=== PATIENT | male | born 1950 | race Caucasian/White ===

== ENCOUNTER → 2016-11-06 | Outpatient (CLI) | payer MEDICARE, OTHER | LOC: RAD 10:40 | PROVIDERS: ATTEND Physician Assistant | DX: M54.2 Cervicalgia (principal); M48.02 Spinal stenosis, cervical region | CPT/HCPCS: 72141 ==

== ENCOUNTER 2017-01-25 19:44 | Emergency (ER) | payer MEDICARE, OTHER ==
[2017-01-25] MEDS ORDERED: NORMAL SALINE 1000 ML 1,000 ML IV ONE (20:12)
[2017-01-25 20:35] LABS: ABSOLUTE BASOPHILS # (AUTO) 0.1 10^3/uL (0.0-0.2); ABSOLUTE EOSINOPHILS # (AUTO) 0.2 10^3/uL (0.0-0.6); ABSOLUTE LYMPHOCYTES (AUTO) 2.3 10^3/uL (0.5-4.7); ABSOLUTE MONOCYTES (AUTO) 1.2 10^3/uL (0.1-1.4); ABSOLUTE NEUT (AUTO) 3.8 10^3/uL (1.7-8.2); EOSINOPHILS % (AUTO) 3.2 % (0-6); HEMOGLOBIN 12.7 g/dL (13.5-17.0); HGB HCT DIFFERENCE 0.1; LYMPHOCYTES % (AUTO) 30.3 % (13-45); MEAN CORPUSCULAR HGB CONC 33.4 g/dL (32.0-36.0); MEAN CORPUSCULAR VOLUME 90 fl (80-97); RED BLOOD COUNT 4.23 10^6/uL (4.35-5.55); RED CELL DISTRIBUTION WIDTH 13.9 % (11.5-14.0); SEGMENTED NEUTROPHILS % (AUTO) 49.5 % (42-78); WHITE BLOOD COUNT 7.6 10^3/uL (4.0-10.5)
[2017-01-25 20:56] LABS: ALANINE AMINOTRANSFERASE 40 U/L (21-72); ALBUMIN 3.8 g/dL (3.5-5.0); ALKALINE PHOSPHATASE 66 U/L (38-126); ANION GAP 12 (5-19); ASPARTATE AMINO TRANSFERASE 29 U/L (17-59); BILIRUBIN,DIRECT 0.1 mg/dL (0.0-0.4); BILIRUBIN,TOTAL 0.2 mg/dL (0.2-1.3); BLOOD UREA NITROGEN 12 mg/dL (7-20); CALCIUM 9.1 mg/dL (8.4-10.2); CARBON DIOXIDE 25 mmol/L (22-30); CHLORIDE 109 mmol/L (98-107); CREATINE KINASE 159 U/L (55-170); CREATININE RESULT 0.83 mg/dL (0.52-1.25); GLUCOSE 109 mg/dL (75-110); POTASSIUM 4.5 mmol/L (3.6-5.0); SODIUM 145.8 mmol/L (137-145); TOTAL PROTEIN 6.6 g/dL (6.3-8.2)
[2017-01-25] MEDS ORDERED: MECLIZINE HCL 25 MG TABLET PO ONE (21:02)
[2017-01-25 21:06] LABS: CREATINE KINASE MB 2.65 ng/mL (<4.55)
[2017-01-25 21:10] LABS: TROPONIN I < 0.012 ng/mL
[2017-01-25 21:12] LABS: FREE T3 4.64 pg/mL (2.77-5.27)
[2017-01-25 21:26] LABS: THYROID STIMULATING HORMONE 2.24 uIU/mL (0.47-4.68)
[2017-01-25] MEDS ORDERED: NORMAL SALINE 1000 ML 1,000 ML IV PRN (21:42)
[2017-01-25 21:48] LABS: APPEARANCE,URINE CLEAR; BILIRUBIN,URINE NEGATIVE (NEGATIVE); GLUCOSE, URINE NEGATIVE (NEGATIVE); KETONES,URINE NEGATIVE (NEGATIVE); LEUKOCYTE ESTERASE,URINE TRACE (NEGATIVE); NITRITE,URINE NEGATIVE (NEGATIVE); PROTEIN,URINE NEGATIVE (NEGATIVE); URINE SPECIFIC GRAVITY 1.014; UROBILINOGEN,URINE NEGATIVE mg/dL (<2.0)
--- NOTE | 2017-01-25 21:51 | ER Document Report ---
ED Dizziness/Weakness - General Chief Complaint: Near Syncope Stated Complaint: DIZZINESS Time seen by provider: 21:51 Mode of Arrival: Ambulatory Information source: Patient TRAVEL OUTSIDE OF THE [place] IN LAST 30 DAYS: No - HPI Patient complains to provider of: Dizziness Onset: This afternoon Onset/Duration: Sudden Quality of pain: No pain Associated symptoms: Lightheaded Exacerbated by: Change in position Baseline gait: Walks w/o assistance Notes: Patient is a 66-year-old male who presents to the emergency room complaining of dizziness/lightheadedness that started earlier today, states he "feels weird all through my system", states he is generally pretty active person, today he was feeling lightheaded, mainly when he bent over and stood up, in fact not 2 times throughout the day he fell because of his lightheadedness, he denies any injury or pain from his falls though he reports that he's been having some muscle cramps over the past few days, patient denies a history of similar symptoms previously, denies a headache, no vision changes, no chest pain or shortness of breath, no nausea or vomiting, patient's sister at bedside reports that both she and her mother suffer from vertigo - Related Data Allergies/Adverse Reactions: No Known Allergies Allergy (Unverified 04/19/11 07:06) Past Medical History - General Information source: Patient - Social History Smoking Status: Former Smoker Chew tobacco use (# tins/day): No Frequency of alcohol use: None Drug Abuse: None Family History: Reviewed & Not Pertinent Patient has suicidal ideation: No Patient has homicidal ideation: No - Past Medical History Cardiac Medical History: Reports: Hx Coronary Artery Disease, Hx Heart Attack, Hx Hypertension Pulmonary Medical History: Reports: Hx Pneumonia Denies: Hx Asthma, Hx Bronchitis, Hx COPD Neurological Medical History: Denies: Hx Cerebrovascular Accident, Hx Seizures Renal/ Medical History: Denies: Hx Peritoneal Dialysis Musculoskeltal Medical History: Reports Hx Arthritis Past Surgical History: Reports: Hx Cardiac Surgery - double bypass. Denies: Hx Pacemaker - Immunizations Hx Diphtheria, Pertussis, Tetanus Vaccination: Yes Hx Pneumococcal Vaccination: 08/24/11 Review of Systems - Review of Systems Constitutional: No symptoms reported EENT: No symptoms reported Cardiovascular: See HPI Respiratory: No symptoms reported Gastrointestinal: No symptoms reported Genitourinary: No symptoms reported Male Genitourinary: No symptoms reported Musculoskeletal: No symptoms reported Skin: No symptoms reported Hematologic/Lymphatic: No symptoms reported Neurological/Psychological: No symptoms reported -: Yes All other systems reviewed and negative Physical Exam - Vital signs Vitals: Pulse Ox 97 01/25/17 20:03 Interpretation: Normal - General General appearance: Appears well, Alert - HEENT Head: Normocephalic, Atraumatic Eyes: Normal Pupils: PERRL - Respiratory Respiratory status: No respiratory distress Chest status: Nontender Breath sounds: Normal Chest palpation: Normal - Cardiovascular Rhythm: Regular Heart sounds: Normal auscultation Murmur: No - Abdominal Inspection: Normal Distension: No distension Bowel sounds: Normal Tenderness: Nontender Organomegaly: No organomegaly - Back Back: Normal, Nontender - Extremities General upper extremity: Normal inspection, Nontender, Normal color, Normal ROM , Normal temperature General lower extremity: Normal inspection, Nontender, Normal color, Normal ROM , Normal temperature, Normal weight bearing. No: Daniel's sign - Neurological Neuro grossly intact: Yes Cognition: Normal Orientation: AAOx4 Seltzer Coma Scale Eye Opening: Spontaneous Lisa Coma Scale Verbal: Oriented Seltzer Coma Scale Motor: Obeys Commands Lisa Coma Scale Total: 15 Speech: Normal Motor strength normal: LUE, RUE, LLE, RLE Sensory: Normal - Psychological Associated symptoms: Normal affect, Normal mood - Skin Skin Temperature: Warm Skin Moisture: Dry Skin Color: Normal Course - Re-evaluation Re-evalutation: 01/25/17 21:56 Patient reports feeling much better, he is able to ambulate and bend over without any additional symptoms, lab and imaging findings were discussed with patient and family members at bedside which are unremarkable, symptoms are consistent with vertigo, patient will be discharged with a prescription for meclizine and information for follow-up, patient actually has an appointment with his primary care provider tomorrow, he was advised to keep this appointment , or return if symptoms worsen, patient acknowledges understanding and agreement with this plan - Vital Signs Vital signs: Temp Pulse Resp BP Pulse Ox 97.5 F 75 20 133/61 H 99 01/25/17 20:29 01/25/17 20:29 01/25/17 22:02 01/25/17 22:02 01/25/17 22:02 - Laboratory Result Diagrams: 01/25/17 20:17 01/25/17 20:17 Laboratory results interpreted by me: 01/25/17 01/25/17 01/25/17 20:17 20:17 21:34 RBC 4.23 L Hgb 12.7 L Monocytes % 16.0 H Sodium 145.8 H Chloride 109 H Ur Leukocyte Esterase TRACE H Urine Ascorbic Acid 40 H - Diagnostic Test Radiology reviewed: Image reviewed, Reports reviewed - EKG Interpretation by Me EKG shows normal: Sinus rhythm Rate: Normal Rhythm: NSR Discharge - Discharge Clinical Impression: Dizziness, Vertigo Condition: Stable Disposition: HOME, SELF-CARE Instructions: Dizziness ([facility]), Vertigo ([facility]) Additional Instructions: Follow up with your primary care provider in one to 2 days. Return to the emergency room immediately if symptoms worsen or any additional concerns. Prescriptions: Meclizine HCl [Antivert 25 mg Tablet] 25 mg PO TID #20 tablet Referrals: RUT MAYORGA MD [Primary Care Provider] - Follow up as needed
[2017-01-25 22:38] VITALS: BP 133/61
--- NOTE | 2017-01-26 22:08 | EKG REPORT ---
SEVERITY:- NORMAL ECG - SINUS RHYTHM : Confirmed by: Lashon Buchanan MD 26-Jan-2017 22:06:38
== END 2017-01-25 22:30 | disposition home or self-care (01) ==
LOC: ER 19:44
DX: R42 Dizziness and giddiness (principal); W19.XXXA Unspecified fall, initial encounter; Z87.891 Personal history of nicotine dependence
CPT/HCPCS: 93005; 99284; 96360; 36415; 84439; 82553; 82550; 84443; 85025; 80053; 81001; 84484; 84481; 71010; 93010; A9270; J7030

== ENCOUNTER → 2017-04-01 | Outpatient (CLI) | payer MEDICARE, OTHER ==
[2017-04-01 10:07] LABS: ABSOLUTE BASOPHILS # (AUTO) 0.1 10^3/uL (0.0-0.2); ABSOLUTE EOSINOPHILS # (AUTO) 0.2 10^3/uL (0.0-0.6); ABSOLUTE LYMPHOCYTES (AUTO) 1.8 10^3/uL (0.5-4.7); ABSOLUTE MONOCYTES (AUTO) 1.1 10^3/uL (0.1-1.4); ABSOLUTE NEUT (AUTO) 4.3 10^3/uL (1.7-8.2); EOSINOPHILS % (AUTO) 2.2 % (0-6); HEMATOCRIT 42.9 % (37.9-51.0); HEMOGLOBIN 13.9 g/dL (13.5-17.0); HGB HCT DIFFERENCE -1.2; LYMPHOCYTES % (AUTO) 24.1 % (13-45); MEAN CORPUSCULAR HEMOGLOBIN 29.5 pg (27.0-33.4); MEAN CORPUSCULAR HGB CONC 32.3 g/dL (32.0-36.0); MEAN CORPUSCULAR VOLUME 91 fl (80-97); MONOCYTES % (AUTO) 14.5 % (3-13); RED CELL DISTRIBUTION WIDTH 13.8 % (11.5-14.0); SEGMENTED NEUTROPHILS % (AUTO) 58.2 % (42-78); WHITE BLOOD COUNT 7.4 10^3/uL (4.0-10.5)
[2017-04-01 10:38] LABS: ALANINE AMINOTRANSFERASE 45 U/L (21-72); ALBUMIN 3.9 g/dL (3.5-5.0); ALKALINE PHOSPHATASE 73 U/L (38-126); ANION GAP 6 (5-19); ASPARTATE AMINO TRANSFERASE 33 U/L (17-59); BILIRUBIN,DIRECT 0.3 mg/dL (0.0-0.4); BILIRUBIN,TOTAL 0.5 mg/dL (0.2-1.3); BLOOD UREA NITROGEN 11 mg/dL (7-20); CALCIUM 9.4 mg/dL (8.4-10.2); CARBON DIOXIDE 30 mmol/L (22-30); CHLORIDE 107 mmol/L (98-107); CREATININE RESULT 0.74 mg/dL (0.52-1.25); GLUCOSE 93 mg/dL (75-110); POTASSIUM 4.5 mmol/L (3.6-5.0); SODIUM 143.1 mmol/L (137-145); TOTAL PROTEIN 7.2 g/dL (6.3-8.2)
== END ==
LOC: LAB 09:55
PROVIDERS: ATTEND Internal Medicine
DX: E03.9 Hypothyroidism, unspecified (principal); I25.10 Atherosclerotic heart disease of native coronary artery without angina pectoris; R53.82 Chronic fatigue, unspecified; G47.62 Sleep related leg cramps
CPT/HCPCS: 36415; 80053; 83735; 84443; 85025

== ENCOUNTER → 2017-04-11 | Outpatient (CLI) | payer MEDICARE, OTHER ==
--- NOTE | 2017-04-12 17:41 | XCELERA REPORT ---
[address] [address] Lower Extremity Arterial Evaluation Name: АЛЕКСАНДР SILVA Age: 67 yrs Gender: Male : 1950 Patient Status: Outpatient Patient Location: Study Date: 04/11/2017 11:07 AM Procedure: A color flow and duplex scan of the lower extremity arteries was performed bilaterally with velocity and waveform anaylsis. Ankle brachial indicies performed. Reason For Study: PVD Ordering Physician: RUT MAYORGA Performed By: Sae Orta Measurements and Calculations Right Left MAKEUP SALES CONSULTANT PSV 127.1 168.5 cm/sec Prox PFA PSV -129.2 103.1 cm/sec Prox SFA PSV -112.4 107.5 cm/sec Mid SFA PSV -83.5 -95.4 cm/sec Dist SFA PSV 337.0 -117.3 cm/sec Dist Pop A PSV 47.1 87.4 cm/sec Dist EDDA PSV 44.3 62.5 cm/sec Dist MANAGER BANQUET PSV 44.6 69.0 cm/sec Rene Pedis PSV -28.1 -50.3 cm/sec Right Side Arterial Evaluation Normal velocity and triphasic waveforms noted from the Common Femoral artery to the Femoral artery, which has a stenosis. Biphasic with well preserved waveforms, moderate spectral broadening. to the infrageniculate vessels. 20-49 % stenosis at the Femoral artery. Ankle Brachial index is 0.82. Left Side Arterial Evaluation Normal velocity and biphasic waveforms noted from the Common Femoral artery to the infrageniculate vessels. 0-19% stenosis at the Aorto Iliac inflow. Ankle Brachial index is 1.03. Interpretation Summary Moderate hemodynamically significant lesions in the right lower extremity only, on duplex imaging, at rest. No hemodynamically significant lesions in the left lower extremity only, on duplex imaging, at rest. : RUT MAYORGA > Elias Musa
== END ==
LOC: SP 10:34
PROVIDERS: ATTEND Internal Medicine
DX: I73.9 Peripheral vascular disease, unspecified (principal)
CPT/HCPCS: 93925

== ENCOUNTER 2017-11-16 08:45 | Day surgery (SDC) | payer MEDICARE, OTHER ==
[~2017-11-16 08:45] MED LIST: KETOROLAC TROMETHAMINE 0.45% 4 DROP/0.4 ML DROPERETTE OS PRN
[2017-11-16] MEDS ORDERED: CHONDR SU A NA/HYALUR INTRAOC KIT (SURGICARE) ONE (08:46)
[2017-11-16] MEDS ORDERED: LIDOCAINE 1% INJ-PF (10 MG/ML) 30 ML SDV ONE (08:46)
[2017-11-16] MEDS ORDERED: TOBRAMYCIN SULFATE/DEXAMETH OPH OINTMENT 3.5 GM ONE (08:46)
[2017-11-16] MEDS ORDERED: EPINEPHRINE INJ/PF 1 MG/1 ML AMPULE ONE (08:46)
[2017-11-16] MEDS: TETRACAINE HCL 0.5% OPH SOLN 0.6 ML DROPERETTE OS PRN ×3 (09:24→10:08)
[2017-11-16] MEDS: TROPICAMIDE 1% OPH SOLN 3 ML OS PRN ×3 (09:25→09:50)
[2017-11-16] MEDS: BESIFLOXACIN HCL 0.6% OPH SUSP 5 ML BOTTLE OS PRN ×3 (09:25→10:31)
[2017-11-16] MEDS: CYCLOPENTOLATE 0.2%/PHENYLEPHRINE 1% OPH SOLN 2 ML OS PRN ×3 (09:25→09:50)
[2017-11-16] MEDS ORDERED: MIDAZOLAM 2 MG/2 ML INJ ONE (09:48)
[2017-11-16] MEDS ORDERED: FENTANYL CITRATE INJ/PF 100 MCG/2 ML AMPUL ONE (09:48)
[2017-11-16] MEDS ORDERED: CHONDR SU A NA/HYALUR SOD 0.5 ML DISP.SYRIN ONE (10:45)
== END 2017-11-16 11:14 | disposition home or self-care (01) ==
LOC: SC 08:45
PROVIDERS: ATTEND Ophthalmology
PROC: 089330Z Drainage of Left Anterior Chamber with Drainage Device, Percutaneous Approach (ICD-10-PCS; 2017-11-16)
PROC: 08RK3JZ Replacement of Left Lens with Synthetic Substitute, Percutaneous Approach (ICD-10-PCS; principal; 2017-11-16 10:00)
DX: H25.12 Age-related nuclear cataract, left eye (principal); H40.1121 Primary open-angle glaucoma, left eye, mild stage; I10 Essential (primary) hypertension; E78.00 Pure hypercholesterolemia, unspecified; E03.9 Hypothyroidism, unspecified; M19.90 Unspecified osteoarthritis, unspecified site
CPT/HCPCS: 0191T; 66984; 142; C1783; J0171; J2250; J3010; J3490; V2630

== ENCOUNTER 2017-11-30 07:49 | Day surgery (SDC) | payer MEDICARE, OTHER ==
[~2017-11-30 07:49] MED LIST changes: +KETOROLAC TROMETHAMINE 0.45% 4 DROP/0.4 ML DROPERETTE OD PRN; -KETOROLAC TROMETHAMINE 0.45% 4 DROP/0.4 ML DROPERETTE OS PRN
[2017-11-30] MEDS ORDERED: EPINEPHRINE INJ/PF 1 MG/1 ML AMPULE ONE (07:50)
[2017-11-30] MEDS ORDERED: LIDOCAINE 1% INJ-PF (10 MG/ML) 30 ML SDV ONE (07:51)
[2017-11-30] MEDS ORDERED: TOBRAMYCIN SULFATE/DEXAMETH OPH OINTMENT 3.5 GM ONE (07:51)
[2017-11-30] MEDS ORDERED: CHONDR SU A NA/HYALUR INTRAOC KIT (SURGICARE) ONE (07:51)
[2017-11-30] MEDS: TETRACAINE HCL 0.5% OPH SOLN 0.6 ML DROPERETTE OD PRN ×3 (08:14→09:07)
[2017-11-30] MEDS: CYCLOPENTOLATE 0.2%/PHENYLEPHRINE 1% OPH SOLN 2 ML OD PRN ×3 (08:15→08:40)
[2017-11-30] MEDS: TROPICAMIDE 1% OPH SOLN 3 ML OD PRN ×3 (08:15→08:40)
[2017-11-30] MEDS: BESIFLOXACIN HCL 0.6% OPH SUSP 5 ML BOTTLE OD PRN ×3 (08:15→09:31)
[2017-11-30] MEDS ORDERED: MIDAZOLAM 2 MG/2 ML INJ ONE ×2 (08:52)
== END 2017-11-30 10:07 | disposition home or self-care (01) ==
LOC: SC 07:49
PROVIDERS: ATTEND Ophthalmology
PROC: 089230Z Drainage of Right Anterior Chamber with Drainage Device, Percutaneous Approach (ICD-10-PCS; 2017-11-30)
PROC: 08RJ3JZ Replacement of Right Lens with Synthetic Substitute, Percutaneous Approach (ICD-10-PCS; principal; 2017-11-30 09:00)
DX: H25.11 Age-related nuclear cataract, right eye (principal); H40.1111 Primary open-angle glaucoma, right eye, mild stage; Z98.42 Cataract extraction status, left eye; I10 Essential (primary) hypertension; E78.00 Pure hypercholesterolemia, unspecified; E03.9 Hypothyroidism, unspecified; M19.90 Unspecified osteoarthritis, unspecified site; Z88.5 Allergy status to narcotic agent; Z79.1 Long term (current) use of non-steroidal anti-inflammatories (NSAID); I25.2 Old myocardial infarction
CPT/HCPCS: 66984; 0191T; C1783; V2630; J2250; J3490 ×3; A9270; J0171; 142

== ENCOUNTER → 2018-02-07 | Outpatient (CLI) | payer MEDICARE, OTHER ==
[2018-02-07 09:32] LABS: ABSOLUTE BASOPHILS # (AUTO) 0.1 10^3/uL (0.0-0.2); ABSOLUTE EOSINOPHILS # (AUTO) 0.2 10^3/uL (0.0-0.6); ABSOLUTE LYMPHOCYTES (AUTO) 2.1 10^3/uL (0.5-4.7); ABSOLUTE MONOCYTES (AUTO) 1.1 10^3/uL (0.1-1.4); ABSOLUTE NEUT (AUTO) 3.3 10^3/uL (1.7-8.2); BASOPHILS % (AUTO) 0.9 % (0-2); EOSINOPHILS % (AUTO) 2.9 % (0-6); HEMATOCRIT 42.4 % (37.9-51.0); HEMOGLOBIN 14.2 g/dL (13.5-17.0); LYMPHOCYTES % (AUTO) 31.1 % (13-45); MEAN CORPUSCULAR HEMOGLOBIN 29.6 pg (27.0-33.4); MEAN CORPUSCULAR HGB CONC 33.6 g/dL (32.0-36.0); MEAN CORPUSCULAR VOLUME 88 fl (80-97); MONOCYTES % (AUTO) 16.4 % (3-13); PLATELET COUNT 220 10^3/uL (150-450); RED BLOOD COUNT 4.81 10^6/uL (4.35-5.55); RED CELL DISTRIBUTION WIDTH 14.3 % (11.5-14.0); SEGMENTED NEUTROPHILS % (AUTO) 48.7 % (42-78); TOTAL CELLS COUNTED % (AUTO) 100 %; WHITE BLOOD COUNT 6.8 10^3/uL (4.0-10.5)
[2018-02-07 10:03] LABS: ALANINE AMINOTRANSFERASE 43 U/L (21-72); ALBUMIN 4.2 g/dL (3.5-5.0); ALKALINE PHOSPHATASE 89 U/L (38-126); ANION GAP 8 (5-19); ASPARTATE AMINO TRANSFERASE 31 U/L (17-59); BILIRUBIN,DIRECT 0.1 mg/dL (0.0-0.4); BILIRUBIN,TOTAL 0.3 mg/dL (0.2-1.3); BLOOD UREA NITROGEN 19 mg/dL (7-20); CALCIUM 9.5 mg/dL (8.4-10.2); CARBON DIOXIDE 31 mmol/L (22-30); CHLORIDE 108 mmol/L (98-107); CHOLESTEROL 129.22 mg/dL (0-200); GLUCOSE 92 mg/dL (75-110); POTASSIUM 4.5 mmol/L (3.6-5.0); SODIUM 147.1 mmol/L (137-145); TOTAL PROTEIN 6.9 g/dL (6.3-8.2); TRIGLYCERIDES 69 mg/dL (<150)
[2018-02-07 10:14] LABS: DIRECT LDL 65 mg/dL (<100)
== END ==
LOC: LAB 08:58
PROVIDERS: ATTEND Internal Medicine
DX: I73.9 Peripheral vascular disease, unspecified (principal); I25.10 Atherosclerotic heart disease of native coronary artery without angina pectoris; E78.5 Hyperlipidemia, unspecified; Z68.23 Body mass index [BMI] 23.0-23.9, adult
CPT/HCPCS: 36415; 80053; 80061; 84443; 85025

== ENCOUNTER 2018-04-10 16:23 | Emergency (ER) | payer MEDICARE, OTHER ==
[2018-04-10] MEDS ORDERED: FENTANYL CITRATE INJ/PF 100 MCG/2 ML AMPUL IV ONE ×3 (18:36→23:09)
--- NOTE | 2018-04-10 18:40 | ER Document Report ---
ED Medical Screen (RME) - General Chief Complaint: Groin Pain Stated Complaint: POSSIBLE HERNIA Time Seen by Provider: 04/10/18 18:24 Notes: 68-year-old male sent in by Rut Mayroga MD for concerns of an incarcerated left inguinal hernia. Patient states that he was gardening and lifting heavy things on Tuesday, felt a steadily increasing pain in his left groin over the past several days and now complains of a very tender to palpation left hemiscrotum that is swollen. States he was seen by Rut Mayorga MD today and he was sent to the emergency department for further evaluation for possible incarcerated hernia. Patient states he has been having diarrhea, no vomiting, no fevers, admits urinary frequency. TRAVEL OUTSIDE OF THE [place] IN LAST 30 DAYS: No - Related Data Allergies/Adverse Reactions: acetaminophen [From Percocet] Allergy (Verified 11/15/17 09:35) Generalized Itching oxycodone [From Percocet] Allergy (Verified 11/15/17 09:35) Generalized Itching tramadol Allergy (Verified 11/15/17 09:35) Generalized Itching Past Medical History - General Information source: Patient - Social History Chew tobacco use (# tins/day): No Frequency of alcohol use: None Drug Abuse: None - Past Medical History Cardiac Medical History: Reports: Hx Coronary Artery Disease, Hx Heart Attack - ? Denies: Hx Hypertension Pulmonary Medical History: Reports: Hx Pneumonia Denies: Hx Asthma, Hx Bronchitis, Hx COPD Neurological Medical History: Denies: Hx Cerebrovascular Accident, Hx Seizures Renal/ Medical History: Denies: Hx Peritoneal Dialysis GI Medical History: Denies: Hx Hepatitis, Hx Hiatal Hernia, Hx Ulcer Musculoskeltal Medical History: Reports Hx Arthritis Infectious Medical History: Denies: Hx Hepatitis Past Surgical History: Reports: Hx Cardiac Surgery - double bypass, Hx Open Heart Surgery - 1998. Denies: Hx Pacemaker - Immunizations Hx Diphtheria, Pertussis, Tetanus Vaccination: Yes Review of Systems - Review of Systems Genitourinary: See HPI Male Genitourinary: See HPI Physical Exam - Vital signs Vitals: Temp Pulse Resp BP Pulse Ox 98.6 F 78 16 123/68 98 04/10/18 16:35 04/10/18 16:35 04/10/18 16:35 04/10/18 16:35 04/10/18 16:35 - Notes Notes: Appears uncomfortable, leaning back in the chair, keeping weight off of his groin is much as possible, left hemiscrotum is enlarged, erythematous, tender to palpation, there does appear to be a loop of intestine tracking into the left hemiscrotum. Right hemiscrotum is normal with a normal cremasteric reflex. Course - Re-evaluation Re-evalutation: 04/10/18 18:40 Message left with OR nurse for Dr. Bains with concerns of possible incarcerated hernia in the left hemiscrotum. - Vital Signs Vital signs: Temp Pulse Resp BP Pulse Ox 98.6 F 78 16 123/68 98 04/10/18 16:35 04/10/18 16:35 04/10/18 16:35 04/10/18 16:35 04/10/18 16:35 Doctor's Discharge - Discharge Referrals: RUT MAYORGA MD [Primary Care Provider] - Follow up as needed
[2018-04-10 19:11] LABS: ABSOLUTE BASOPHILS # (AUTO) 0.1 10^3/uL (0.0-0.2); ABSOLUTE EOSINOPHILS # (AUTO) 0.2 10^3/uL (0.0-0.6); ABSOLUTE LYMPHOCYTES (AUTO) 1.9 10^3/uL (0.5-4.7); ABSOLUTE NEUT (AUTO) 12.5 10^3/uL (1.7-8.2); BASOPHILS % (AUTO) 0.3 % (0-2); EOSINOPHILS % (AUTO) 1.2 % (0-6); HEMATOCRIT 41.4 % (37.9-51.0); HEMOGLOBIN 13.8 g/dL (13.5-17.0); LYMPHOCYTES % (AUTO) 11.5 % (13-45); MEAN CORPUSCULAR HEMOGLOBIN 30.1 pg (27.0-33.4); MEAN CORPUSCULAR HGB CONC 33.4 g/dL (32.0-36.0); MEAN CORPUSCULAR VOLUME 90 fl (80-97); MONOCYTES % (AUTO) 12.1 % (3-13); PLATELET COUNT 191 10^3/uL (150-450); RED CELL DISTRIBUTION WIDTH 14.3 % (11.5-14.0); SEGMENTED NEUTROPHILS % (AUTO) 74.9 % (42-78); TOTAL CELLS COUNTED % (AUTO) 100 %; WHITE BLOOD COUNT 16.7 10^3/uL (4.0-10.5)
[2018-04-10] MEDS ORDERED: ONDANSETRON 4 MG TAB.RAPDIS PO ONE (19:11)
[2018-04-10 19:24] LABS: BLOOD UREA NITROGEN 18 mg/dL (7-20); CALCIUM 9.7 mg/dL (8.4-10.2); GLUCOSE 99 mg/dL (75-110)
[2018-04-10 19:25] LABS: ALANINE AMINOTRANSFERASE 43 U/L (21-72); ALBUMIN 3.9 g/dL (3.5-5.0); ALKALINE PHOSPHATASE 97 U/L (38-126); ANION GAP 12 (5-19); ASPARTATE AMINO TRANSFERASE 36 U/L (17-59); BILIRUBIN,DIRECT 0.4 mg/dL (0.0-0.4); BILIRUBIN,TOTAL 0.4 mg/dL (0.2-1.3); CARBON DIOXIDE 27 mmol/L (22-30); CHLORIDE 106 mmol/L (98-107); SODIUM 145.2 mmol/L (137-145); TOTAL PROTEIN 7.1 g/dL (6.3-8.2)
--- NOTE | 2018-04-10 21:44 | RADIOLOGY REPORT (SQ) ---
EXAM DESCRIPTION: U/S SCROTUM W/DOPPLER COMPLETED DATE/TIME: 04/10/2018 9:28 pm REASON FOR STUDY: left scrotal pain and swelling COMPARISON: None. TECHNIQUE: Static and realtime miller scale imaging of the scrotum and testes. Selected color Doppler and spectral images recorded to document blood flow. LIMITATIONS: None. FINDINGS: RIGHT: TESTICLE: Normal size, 4 x 3 x 3.3 cm. Normal echotexture. Normal blood flow. No mass. EPIDIDYMIS: Normal. 1 x 1 x 1.1 cm HYDROCELE OR VARICOCELE: Small varicocele. HERNIA OR EXTRA-TESTICULAR MASS: No. OTHER: No other significant finding. LEFT: TESTICLE: Normal size, 5 x 3.4 x 3.6 cm. Normal echotexture. Normal blood flow. No mass. EPIDIDYMIS: Normal. HYDROCELE OR VARICOCELE: Large hydrocele contains thin septation and possibly some debris. HERNIA OR EXTRA-TESTICULAR MASS: No. OTHER: No other significant finding. IMPRESSION: 1. Small right varicocele. 2. Large left hydrocele with septation and debris, possible hemorrhagic collection. TECHNICAL DOCUMENTATION: JOB ID: [id number]- All Rights Reserved Reading location - IP/workstation name: [email or web address]
[2018-04-10 22:19] VITALS: BP 135/56
--- NOTE | 2018-04-10 22:25 | RADIOLOGY REPORT (SQ) ---
EXAM DESCRIPTION: CT ABD/PELVIS WITH IV ORAL COMPLETED DATE/TIME: 04/10/2018 10:00 pm REASON FOR STUDY: concern for incarcerated hernia COMPARISON: None. TECHNIQUE: CT scan of the abdomen and pelvis performed using helical scanning technique with dynamic intravenous contrast injection. Oral contrast. Images reviewed with lung, soft tissue, and bone win dows. Reconstructed coronal and sagittal MPR images reviewed. Delayed images for evaluation of the ur inary system also acquired. All images stored on PACS. All CT scanners at this facility use dose modulation, iterative reconstruction, and/or weight based d osing when appropriate to reduce radiation dose to as low as reasonably achievable (ALARA). [facility]: Dose Right [facility]: CareDose [facility]: Dose Right [facility]: Teradose 4D [facility]: Blink CONTRAST TYPE AND DOSE: contrast/concentration: Isovue 370.00 mg/ml; Total Contrast Delivered: 72.0 ml; Total Saline Delivered: 41.0 ml RENAL FUNCTION: BUN 18 creatinine 0.82 RADIATION DOSE: CT Rad equipment meets quality standard of care and radiation dose reduction techniq ues were employed. CTDIvol: 4.9 - 5.8 mGy. DLP: 811 mGy-cm.. LIMITATIONS: None. FINDINGS: LOWER CHEST: Mild subpleural honeycombing in the lower lobes. LIVER: Normal size. No masses. No dilated ducts. SPLEEN: Normal size. No focal lesions. PANCREAS: No masses. No significant calcifications. No adjacent inflammation or peripancreatic fluid collections. Pancreatic duct not dilated. GALLBLADDER: No identified stones by CT criteria. No inflammatory changes to suggest cholecystitis. ADRENAL GLANDS: No significant masses or asymmetry. RIGHT KIDNEY AND URETER: No solid masses. No significant calcifications. No hydronephrosis or hyd roureter. LEFT KIDNEY AND URETER: No solid masses. A couple of nonobstructing intrarenal calculi are present. No hydronephrosis or hydroureter. AORTA AND VESSELS: No aneurysm. No dissection. Renal arteries, SMA, celiac without stenosis. RETROPERITONEUM: No retroperitoneal adenopathy, hemorrhage or masses. BOWEL AND PERITONEAL CAVITY: Sigmoid diverticulosis. No acute inflammatory changes. APPENDIX: Not identified. PELVIS: Small left inguinal hernia containing only fat and vessels. There is no evidence of incarcer ated loop of bowel. There is a well-circumscribed slightly thick-walled fluid collection in the uppe r scrotum. BONES: Anterolisthesis of L4 on L5. No osseous lesions. OTHER: No other significant finding. IMPRESSION: 1. Nonobstructing left intrarenal calculi. 2. Sigmoid diverticulosis. 3. Small left inguinal hernia contains only fat and vessels. 4. Well-circumscribed slightly thick-walled fluid collection in the upper scrotum. Possible hematom a. Possible abscess. 5. Anterolisthesis of L4 on L5. COMMENT: Findings were discussed with the ordering physician at 2220 hours on this date. TECHNICAL DOCUMENTATION: JOB ID: [id number] Quality ID # [id number]: Final reports with documentation of one or more dose reduction techniques (e.g., Au tomated exposure control, adjustment of the mA and/or kV according to patient size, use of iterative reconstruction technique) 2010 [employer]- All Rights Reserved Reading location - IP/workstation name: [email or web address]
--- NOTE | 2018-04-10 22:38 | ER Document Report ---
ED General - General Chief Complaint: Groin Pain Stated Complaint: POSSIBLE HERNIA Time Seen by Provider: 04/10/18 18:24 Mode of Arrival: Ambulatory Information source: Patient, DrWilla Walker, [facility] Records Notes: 68-year-old male with coronary artery disease, hypothyroidism presents with complaint of left-sided scrotal pain that started 3 days prior to arrival. Patient states that he worked all day gardening and was doing some heavy raking and lifting and assuming that he pulled his groin doing that. Patient states that since that time he has experienced worsening throbbing pain. Patient was seen by his primary care physician today Dr. Padgett who was confirmed concern for an incarcerated hernia. Patient denies any fever, chills. He does admit to some nausea without vomiting. He denies any prior similar symptoms. TRAVEL OUTSIDE OF THE [place] IN LAST 30 DAYS: No - HPI Onset: Other Onset/Duration: Gradual, Persistent, Worse Quality of pain: Stabbing, Throbbing Severity: None Associated symptoms: Nausea. denies: Vomiting Exacerbated by: Movement, Walking Relieved by: Remaining still Similar symptoms previously: No Recently seen / treated by doctor: Yes - Related Data Allergies/Adverse Reactions: acetaminophen [From Percocet] Allergy (Verified 04/10/18 20:56) Generalized Itching oxycodone [From Percocet] Allergy (Verified 04/10/18 20:56) Generalized Itching tramadol Allergy (Verified 04/10/18 20:56) Generalized Itching Past Medical History - General Information source: Patient - Social History Smoking Status: Former Smoker Chew tobacco use (# tins/day): No Frequency of alcohol use: None Drug Abuse: None Family History: Reviewed & Not Pertinent Patient has suicidal ideation: No Patient has homicidal ideation: No - Past Medical History Cardiac Medical History: Reports: Hx Coronary Artery Disease, Hx Heart Attack - ? Denies: Hx Hypertension Pulmonary Medical History: Reports: Hx Pneumonia Denies: Hx Asthma, Hx Bronchitis, Hx COPD Neurological Medical History: Denies: Hx Cerebrovascular Accident, Hx Seizures Renal/ Medical History: Denies: Hx Peritoneal Dialysis GI Medical History: Denies: Hx Hepatitis, Hx Hiatal Hernia, Hx Ulcer Musculoskeltal Medical History: Reports Hx Arthritis Infectious Medical History: Denies: Hx Hepatitis Past Surgical History: Reports: Hx Cardiac Surgery - double bypass, Hx Open Heart Surgery - 1998. Denies: Hx Pacemaker - Immunizations Hx Diphtheria, Pertussis, Tetanus Vaccination: Yes Hx Pneumococcal Vaccination: 08/24/11 Review of Systems - Review of Systems Notes: REVIEW OF SYSTEMS: CONSTITUTIONAL : Denies fever, chills, or sweats. Denies recent illness. Denies weight loss, recent hospitalizations. EENT: Denies visual changes, eye pain. Denies nasal or sinus congestion or discharge. Denies sore throat, oral lesions, difficulty swallowing. CARDIOVASCULAR: Denies chest pain. Denies palpitations. Denies lower extremity edema. RESPIRATORY: Denies cough, cold, or chest congestion. Denies shortness of breath, wheezing. GASTROINTESTINAL: Denies abdominal pain or distention. Denies nausea, vomiting , or diarrhea. Denies blood in vomitus, stools, or per rectum. Denies black, tarry stools. Denies constipation. GENITOURINARY: Denies difficulty urinating, painful urination, frequency, blood in urine, MUSCULOSKELETAL: Denies back or neck pain or stiffness. Denies joint pain or swelling. SKIN: Denies rash, lesions or sores. HEMATOLOGIC : Denies easy bruising or bleeding. LYMPHATIC: Denies swollen glands. NEUROLOGICAL: Denies confusion or altered mental status. Denies passing out or loss of consciousness. Denies dizziness or lightheadedness. Denies headache. Denies weakness or paralysis. Denies problems difficulty with ambulation, slurred speech. Denies sensory loss, numbness, or tingling. Denies seizures. PSYCHIATRIC: Denies anxiety or stress. Denies depression, suicidal ideation, or homicidal ideation. Denies visual or auditory hallucinations. Physical Exam - Vital signs Vitals: Temp Pulse Resp BP Pulse Ox 98.6 F 78 16 123/68 98 04/10/18 16:35 04/10/18 16:35 04/10/18 16:35 04/10/18 16:35 04/10/18 16:35 - Notes Notes: PHYSICAL EXAMINATION: GENERAL: Well-appearing, well-nourished and in no acute distress. HEAD: Atraumatic, normocephalic. EYES: Pupils equal round and reactive to light, extraocular movements intact, sclera anicteric, conjunctiva are normal. ENT: Nares patent, oropharynx clear without exudates. Moist mucous membranes. NECK: Normal range of motion, supple without lymphadenopathy LUNGS: Breath sounds clear to auscultation bilaterally and equal. No wheezes rales or rhonchi. HEART: Regular rate and rhythm without murmurs ABDOMEN: Soft, nontender, nondistended abdomen. No guarding, no rebound. No masses appreciated. : Left testicular swelling, erythema. Right testicle nontender. Small left inguinal hernia. Hemispheric reflexes intact bilaterally. Musculoskeletal: Normal range of motion, no pitting or edema. No cyanosis. NEUROLOGICAL: Cranial nerves grossly intact. Normal speech, normal gait. Normal sensory, motor exams PSYCH: Normal mood, normal affect. SKIN: Warm, Dry, normal turgor, no rashes or lesions noted. Course - Re-evaluation Re-evalutation: 04/10/18 22:36 Laboratory 04/10/18 04/10/18 04/10/18 18:55 18:55 20:30 WBC 16.7 H RBC 4.60 Hgb 13.8 Hct 41.4 MCV 90 MCH 30.1 MCHC 33.4 RDW 14.3 H Plt Count 191 Seg Neutrophils % 74.9 Lymphocytes % 11.5 L Monocytes % 12.1 Eosinophils % 1.2 Basophils % 0.3 Absolute Neutrophils 12.5 H Absolute Lymphocytes 1.9 Absolute Monocytes 2.0 H Absolute Eosinophils 0.2 Absolute Basophils 0.1 Sodium 145.2 H Potassium 4.0 Chloride 106 Carbon Dioxide 27 Anion Gap 12 BUN 18 Creatinine 0.82 Est GFR ( Amer) > 60 Est GFR (Non-Af Amer) > 60 Glucose 99 Lactic Acid 0.9 Calcium 9.7 Total Bilirubin 0.4 Direct Bilirubin 0.4 Neonat Total Bilirubin Not Reportable Neonat Direct Bilirubin Not Reportable Neonat Indirect Bili Not Reportable AST 36 ALT 43 Alkaline Phosphatase 97 Total Protein 7.1 Albumin 3.9 Abdomen/Pelvis CT 04/10/18 00:00 IMPRESSION: 1. Nonobstructing left intrarenal calculi. 2. Sigmoid diverticulosis. 3. Small left inguinal hernia contains only fat and vessels. 4. Well-circumscribed slightly thick-walled fluid collection in the upper scrotum. Possible hematoma. Possible abscess. 5. Anterolisthesis of L4 on L5. Scrotum Ultrasound 04/10/18 18:36 IMPRESSION: 1. Small right varicocele. 2. Large left hydrocele with septation and debris, possible hemorrhagic collection. 68-year-old male presents with left testicular pain that started 3 days prior to arrival after working in his garden all day. Exam is significant for a left testicular pain, swelling and erythema. Patient was initially evaluated by surgery who does not feel that this is an incarcerated hernia. Significant lab findings include a leukocytosis of 16. Urine pending. CT of the abdomen shows a well-circumscribed thick-walled fluid collection in the upper scrotum and ultrasound shows a large left hydrocele with septation, debris and a possible hemorrhagic collection. Patient's CBC is significant for a leukocytosis of 16. CMP shows no significant electrolyte abnormalities. Urinalysis is consistent with urinary tract infection. Urology consulted and will see the patient. 04/10/18 22:37 04/11/18 03:39 Urology the patient and imaging which included a CAT scan of the abdomen and pelvis contrast as well as an ultrasound of the scrotum. Urology is stating that they believe this is epididymal orchitis. Recommendations are 1 g of Rocephin while in the emergency department followed by a home-going prescription for Bactrim and re-evaluation in his office on , April 13, 2018. Recommendations were discussed with the patient who is agreeable. Patient did receive a prescription for Bactrim and [place]. Advised to ice and elevate the testicle. Patient provided the opportunity to ask questions, and express concerns. Discharge instructions discussed. Patient is agreeable with discharge home. Return indications explained and discussed with the patient who displays understanding. Patient encouraged to return to the emergency department immediately with any concerns. 04/11/18 03:42 - Vital Signs Vital signs: Temp Pulse Resp BP Pulse Ox 99.1 F 79 14 135/56 H 99 04/10/18 23:59 04/10/18 19:29 04/10/18 22:05 04/10/18 22:05 04/10/18 22:07 - Laboratory Result Diagrams: 04/10/18 18:55 04/10/18 18:55 Laboratory results interpreted by me: 04/10/18 04/10/18 04/10/18 18:55 18:55 22:50 WBC 16.7 H RDW 14.3 H Lymphocytes % 11.5 L Absolute Neutrophils 12.5 H Absolute Monocytes 2.0 H Sodium 145.2 H Urine Ketones TRACE H Ur Leukocyte Esterase MODERATE H Urine Ascorbic Acid 40 H - Diagnostic Test Radiology reviewed: Image reviewed, Reports reviewed Discharge - Discharge Clinical Impression: Epididymitis, Orchitis Condition: Good Disposition: HOME, SELF-CARE Instructions: Anti-Inflammatory Medication ([facility]), Epididymitis ([facility]), Testicular Pain ([facility]) Additional Instructions: Please call Dr. Vigil's office tomorrow morning after 8 AM at phone number . Please inform them that you are seen by him last night in the emergency department. He wants to see you on , April 13 in his office. Prescriptions: Hydrocodone/Acetaminophen [Vicodin 5-300 mg Tablet] 1 tab PO Q4HP PRN #15 tab PRN Reason: Ondansetron [Zofran Odt 4 mg Tablet] 1 - 2 tab PO Q4H PRN #15 tab.rapdis PRN Reason: For Nausea/Vomiting Sulfamethoxazole/Trimethoprim [Bactrim Ds Tablet] 1 each PO BID 7 Days #14 tablet Referrals: RUT MAYORGA MD [Primary Care Provider] - Follow up as needed HELEN VIGIL II, MD [[facility]] - 04/13/18
[2018-04-10] MEDS ORDERED: CEFTRIAXONE 1 GM/D5W RTU 1 GM/50 ML RTUPB IV ONE (23:01)
[2018-04-10 23:12] LABS: APPEARANCE,URINE CLEAR; BILIRUBIN,URINE NEGATIVE (NEGATIVE); COLOR,URINE YELLOW; GLUCOSE, URINE NEGATIVE (NEGATIVE); KETONES,URINE TRACE mg/dL (NEGATIVE); LEUKOCYTE ESTERASE,URINE MODERATE (NEGATIVE); NITRITE,URINE NEGATIVE (NEGATIVE); PROTEIN,URINE NEGATIVE (NEGATIVE); URINE SPECIFIC GRAVITY 1.032; UROBILINOGEN,URINE NEGATIVE mg/dL (<2.0)
--- NOTE | 2018-04-11 12:13 | PDOC CONSULTATION ---
Consultation Consult Date: 04/10/18 Consult reason:: Swollen scrotum History of Present Illness Admission Date/PCP: RUT MAYORGA, History of Present Illness: АЛЕКСАНДР SILVA is a 68 year old male who was doing well until Tuesday 2 days prior to his emergency room visit. He had an active day with pulling and straining and later that day began to have some left-sided scrotal discomfort. He continued to worsen over the next day and presented to the emergency room in the early evening of 04/10/2018. He was evaluated there after being sent from his primary care physician's office concerned that he might have a strangulated hernia. Scrotal ultrasound and a CT scan were obtained. These ruled out any sort of hernia problem. In addition it ruled out testicular torsion. Urology consultation is obtained. Past Medical History Cardiac Medical History: Reports: Coronary Artery Disease, Myocardial Infarction - ? Denies: Hypertension Pulmonary Medical History: Reports: Pneumonia Denies: Asthma, Bronchitis, Chronic Obstructive Pulmonary Disease (COPD) Neurological Medical History: Denies: Seizures GI Medical History: Denies: Hepatitis, Hiatal Hernia Musculoskeltal Medical History: Reports: Arthritis Hematology: Denies: Anemia, Sickle Cell Disease Past Surgical History Past Surgical History: Denies: Pacemaker Social History Smoking Status: Former Smoker Family History Family History: Reviewed & Not Pertinent Parental Family History Reviewed: Yes Children Family History Reviewed: No Sibling(s) Family History Reviewed.: No Medication/Allergy Home Medications: Atorvastatin Calcium [Lipitor 40 mg Tablet] 40 mg PO QHS 11/15/17 Celecoxib [Celebrex 200 mg Capsule] 200 mg PO DAILY 11/15/17 Cilostazol 100 mg PO DAILY 11/15/17 Levothyroxine Sodium [Levoxyl] 100 mcg PO DAILY 11/15/17 Hydrocodone/Acetaminophen [Vicodin 5-300 mg Tablet] 1 tab PO Q4HP PRN #15 tab Ondansetron [Zofran Odt 4 mg Tablet] 1 - 2 tab PO Q4H PRN #15 tab.rapdis Sulfamethoxazole/Trimethoprim [Bactrim Ds Tablet] 1 each PO BID 7 Days #14 tablet 04/10/18 Allergies/Adverse Reactions: acetaminophen [From Percocet] Allergy (Verified 04/10/18 20:56) Generalized Itching oxycodone [From Percocet] Allergy (Verified 04/10/18 20:56) Generalized Itching tramadol Allergy (Verified 04/10/18 20:56) Generalized Itching Physical Exam Vital Signs: Temp Pulse Resp BP Pulse Ox 99.1 F 79 14 135/56 H 99 04/10/18 23:59 04/10/18 19:29 04/10/18 22:05 04/10/18 22:05 04/10/18 22:07 Intake & Output 04/10/18 04/11/18 04/12/18 06:59 06:59 06:59 Weight 67.3 kg GI/Abdominal exam: PRESENT: other - Genitourinary: The right testicle and scrotal contents are normal. The left hemiscrotum is erythematous, and edematous but not tense. The testicle and epididymis are moderately enlarged and extremely tender. These structures are not separable. No fluctuant areas are palpated. Results Laboratory Results: 04/10/18 18:55 04/10/18 18:55 04/10/18 04/10/18 04/10/18 18:55 18:55 20:30 WBC 16.7 H RBC 4.60 Hgb 13.8 Hct 41.4 MCV 90 MCH 30.1 MCHC 33.4 RDW 14.3 H Plt Count 191 Seg Neutrophils % 74.9 Lymphocytes % 11.5 L Monocytes % 12.1 Eosinophils % 1.2 Basophils % 0.3 Absolute Neutrophils 12.5 H Absolute Lymphocytes 1.9 Absolute Monocytes 2.0 H Absolute Eosinophils 0.2 Absolute Basophils 0.1 Sodium 145.2 H Potassium 4.0 Chloride 106 Carbon Dioxide 27 Anion Gap 12 BUN 18 Creatinine 0.82 Est GFR ( Amer) > 60 Est GFR (Non-Af Amer) > 60 Glucose 99 Lactic Acid 0.9 Calcium 9.7 Total Bilirubin 0.4 AST 36 ALT 43 Alkaline Phosphatase 97 Total Protein 7.1 Albumin 3.9 Urine Color Urine Appearance Urine pH Ur Specific [place] Urine Protein Urine Glucose (UA) Urine Ketones Urine Blood Urine Nitrite Ur Leukocyte Esterase Urine WBC (Auto) Urine RBC (Auto) 04/10/18 22:50 WBC RBC Hgb Hct MCV MCH MCHC RDW Plt Count Seg Neutrophils % Lymphocytes % Monocytes % Eosinophils % Basophils % Absolute Neutrophils Absolute Lymphocytes Absolute Monocytes Absolute Eosinophils Absolute Basophils Sodium Potassium Chloride Carbon Dioxide Anion Gap BUN Creatinine Est GFR ( Amer) Est GFR (Non-Af Amer) Glucose Lactic Acid Calcium Total Bilirubin AST ALT Alkaline Phosphatase Total Protein Albumin Urine Color YELLOW Urine Appearance CLEAR Urine pH 5.0 Ur Specific [place] 1.032 Urine Protein NEGATIVE Urine Glucose (UA) NEGATIVE Urine Ketones TRACE H Urine Blood NEGATIVE Urine Nitrite NEGATIVE Ur Leukocyte Esterase MODERATE H Urine WBC (Auto) 54 Urine RBC (Auto) 2 Impressions: Abdomen/Pelvis CT 04/10/18 00:00 IMPRESSION: 1. Nonobstructing left intrarenal calculi. 2. Sigmoid diverticulosis. 3. Small left inguinal hernia contains only fat and vessels. 4. Well-circumscribed slightly thick-walled fluid collection in the upper scrotum. Possible hematoma. Possible abscess. 5. Anterolisthesis of L4 on L5. Scrotum Ultrasound 04/10/18 18:36 IMPRESSION: 1. Small right varicocele. 2. Large left hydrocele with septation and debris, possible hemorrhagic collection. Assessment & Plan - Plan Summary Plan Summary: Examination this patient has classic epididymoorchitis with induration of the testicle and enlargement and induration of the epididymis on the left. Plan: 1. 1 g of Rocephin 2. Either suggest ciprofloxacin or Bactrim DS to be sent home with the patient 3. Scrotal elevation 4. Ice to left hemiscrotum 5. Return to urology for reevaluation 6. May need I&D of scrotal abscess should that persist
== END 2018-04-10 23:59 | disposition home or self-care (01) ==
LOC: ER 16:23
DX: N45.3 Epididymo-orchitis (principal); K40.90 Unilateral inguinal hernia, without obstruction or gangrene, not specified as recurrent; K57.30 Diverticulosis of large intestine without perforation or abscess without bleeding; N43.3 Hydrocele, unspecified; I86.1 Scrotal varices; N50.812 Left testicular pain; M43.16 Spondylolisthesis, lumbar region; R11.0 Nausea; D72.829 Elevated white blood cell count, unspecified; I25.10 Atherosclerotic heart disease of native coronary artery without angina pectoris; I10 Essential (primary) hypertension; Z88.6 Allergy status to analgesic agent; Z88.5 Allergy status to narcotic agent; Z87.891 Personal history of nicotine dependence
CPT/HCPCS: 96376; 99284; 96375; 96365; 36415; 87040; 85025; 80053; 81001; 83605; 76870; 93976; 74177; A9270; J3010; J0696; S0119

== ENCOUNTER → 2019-08-14 | Outpatient (CLI) | payer MEDICARE, OTHER ==
[2019-08-14 09:24] LABS: ABSOLUTE BASOPHILS # (AUTO) 0.1 10^3/uL (0.0-0.2); ABSOLUTE EOSINOPHILS # (AUTO) 0.2 10^3/uL (0.0-0.6); ABSOLUTE MONOCYTES (AUTO) 1.2 10^3/uL (0.1-1.4); BASOPHILS % (AUTO) 0.9 % (0-2); EOSINOPHILS % (AUTO) 1.9 % (0-6); HEMATOCRIT 43.5 % (37.9-51.0); HEMOGLOBIN 14.4 g/dL (13.5-17.0); LYMPHOCYTES % (AUTO) 26.3 % (13-45); MEAN CORPUSCULAR HEMOGLOBIN 29.6 pg (27.0-33.4); MEAN CORPUSCULAR VOLUME 90 fl (80-97); MONOCYTES % (AUTO) 10.2 % (3-13); PLATELET COUNT 221 10^3/uL (150-450); RED BLOOD COUNT 4.85 10^6/uL (4.35-5.55); RED CELL DISTRIBUTION WIDTH 13.8 % (11.5-14.0); SEGMENTED NEUTROPHILS % (AUTO) 60.7 % (42-78); TOTAL CELLS COUNTED % (AUTO) 100 %; WHITE BLOOD COUNT 11.6 10^3/uL (4.0-10.5)
[2019-08-14 09:39] LABS: ALBUMIN 4.3 g/dL (3.5-5.0); ALKALINE PHOSPHATASE 80 U/L (38-126); ANION GAP 9 (5-19); ASPARTATE AMINO TRANSFERASE 28 U/L (17-59); BILIRUBIN,TOTAL 0.5 mg/dL (0.2-1.3); BLOOD UREA NITROGEN 15 mg/dL (7-20); CALCIUM 9.3 mg/dL (8.4-10.2); CARBON DIOXIDE 28 mmol/L (22-30); CHLORIDE 105 mmol/L (98-107); CHOLESTEROL 160.23 mg/dL (0-200); GLUCOSE 92 mg/dL (75-110); POTASSIUM 4.6 mmol/L (3.6-5.0); TOTAL PROTEIN 7.5 g/dL (6.3-8.2); TRIGLYCERIDES 59 mg/dL (<150)
[2019-08-14 09:50] LABS: DIRECT LDL 112 mg/dL (<100)
== END ==
LOC: LAB 08:47
PROVIDERS: ATTEND Internal Medicine
DX: I25.10 Atherosclerotic heart disease of native coronary artery without angina pectoris (principal); I10 Essential (primary) hypertension; E78.5 Hyperlipidemia, unspecified; E03.9 Hypothyroidism, unspecified; R35.1 Nocturia
CPT/HCPCS: 36415; 80053; 80061; 84153; 84443; 85025

== ENCOUNTER → 2019-08-21 | Outpatient (CLI) | payer MEDICARE, OTHER | LOC: LAB 09:15 | PROVIDERS: ATTEND Internal Medicine | DX: M79.10 Myalgia, unspecified site (principal); R25.2 Cramp and spasm | CPT/HCPCS: 36415; 82550; 83735 ==

== ENCOUNTER → 2019-12-24 | Outpatient (CLI) | payer MEDICARE, OTHER ==
[2019-12-24 10:46] LABS: ABSOLUTE BASOPHILS # (AUTO) 0.1 10^3/uL (0.0-0.2); ABSOLUTE EOSINOPHILS # (AUTO) 0.3 10^3/uL (0.0-0.6); ABSOLUTE LYMPHOCYTES (AUTO) 2.7 10^3/uL (0.5-4.7); ABSOLUTE NEUT (AUTO) 4.4 10^3/uL (1.7-8.2); BASOPHILS % (AUTO) 0.9 % (0-2); EOSINOPHILS % (AUTO) 3.1 % (0-6); HEMOGLOBIN 15.1 g/dL (13.5-17.0); LYMPHOCYTES % (AUTO) 32.3 % (13-45); MEAN CORPUSCULAR HEMOGLOBIN 31.2 pg (27.0-33.4); MEAN CORPUSCULAR HGB CONC 34.4 g/dL (32.0-36.0); MEAN CORPUSCULAR VOLUME 91 fl (80-97); MONOCYTES % (AUTO) 11.9 % (3-13); PLATELET COUNT 215 10^3/uL (150-450); RED BLOOD COUNT 4.85 10^6/uL (4.35-5.55); SEGMENTED NEUTROPHILS % (AUTO) 51.8 % (42-78); TOTAL CELLS COUNTED % (AUTO) 100 %; WHITE BLOOD COUNT 8.5 10^3/uL (4.0-10.5)
[2019-12-24 10:52] LABS: ALBUMIN 4.2 g/dL (3.5-5.0); ALKALINE PHOSPHATASE 77 U/L (38-126); ANION GAP 9 (5-19); ASPARTATE AMINO TRANSFERASE 37 U/L (17-59); BILIRUBIN,DIRECT 0.3 mg/dL (0.0-0.4); BILIRUBIN,TOTAL 0.4 mg/dL (0.2-1.3); BLOOD UREA NITROGEN 13 mg/dL (7-20); CALCIUM 9.2 mg/dL (8.4-10.2); CARBON DIOXIDE 31 mmol/L (22-30); CHLORIDE 102 mmol/L (98-107); CHOLESTEROL 175.99 mg/dL (0-200); GLUCOSE 83 mg/dL (75-110); POTASSIUM 4.4 mmol/L (3.6-5.0); TOTAL PROTEIN 7.4 g/dL (6.3-8.2); TRIGLYCERIDES 253 mg/dL (<150)
[2019-12-24 11:08] LABS: DIRECT LDL 107 mg/dL (<100)
[2019-12-24 11:50] LABS: VLDL CHOLESTEROL 50.6 mg/dL (10-31)
== END ==
LOC: OD 09:31
PROVIDERS: ATTEND Internal Medicine
DX: I25.10 Atherosclerotic heart disease of native coronary artery without angina pectoris (principal); I10 Essential (primary) hypertension; E78.5 Hyperlipidemia, unspecified; E03.9 Hypothyroidism, unspecified
CPT/HCPCS: 36415; 80053; 80061; 84443; 85025

== ENCOUNTER → 2020-01-08 | Outpatient (CLI) | payer MEDICARE, OTHER | LOC: OD 09:32 | PROVIDERS: ATTEND Internal Medicine | DX: E03.9 Hypothyroidism, unspecified (principal) | CPT/HCPCS: 36415; 84443 ==

== ENCOUNTER → 2020-06-18 | Outpatient (CLI) | payer MEDICARE, OTHER ==
--- NOTE | 2020-06-18 10:26 | RADIOLOGY REPORT (SQ) ---
EXAM DESCRIPTION: CHEST PA/LATERAL IMAGES COMPLETED DATE/TIME: 06/18/2020 10:18 am REASON FOR STUDY: BRONCHITIS,COUGH COMPARISON: 12/29/2010, 01/25/2017 EXAM PARAMETERS: NUMBER OF VIEWS: two views TECHNIQUE: Digital Frontal and Lateral radiographic views of the chest acquired. RADIATION DOSE: NA LIMITATIONS: none FINDINGS: LUNGS AND PLEURA: There is bilateral interstitial airspace disease. This has progressed s olivia 2010 and most likely represents chronic interstitial lung disease. There are no focal consolida tions. No pleural effusion. Interstitial pneumonitis cannot be excluded but thought to be less like ly. There is hyperexpansion. MEDIASTINUM AND HILAR STRUCTURES: No masses or contour abnormalities. HEART AND VASCULAR STRUCTURES: Heart normal size. No evidence for failure. BONES: No acute findings. HARDWARE: Sternotomy wires are in place. OTHER: No other significant finding. IMPRESSION: Hyperexpansion with prominent wall interstitial lung disease. There has been progressio n when compared to 2010. Mild increase in interstitial markings when compared to 2017. TECHNICAL DOCUMENTATION: JOB ID: [id number] 2010 [employer]- All Rights Reserved Reading location - IP/workstation name: [email or web address]
== END ==
LOC: OD 10:08
PROVIDERS: ATTEND Internal Medicine
DX: J40 Bronchitis, not specified as acute or chronic (principal); R05 Cough
CPT/HCPCS: 71046

== ENCOUNTER → 2020-07-30 | Outpatient (CLI) | payer MEDICARE, OTHER ==
--- NOTE | 2020-07-30 14:13 | RADIOLOGY REPORT (SQ) ---
EXAM DESCRIPTION: U/S THYROID/SFT TISS HD NECK IMAGES COMPLETED DATE/TIME: 07/30/2020 9:10 am REASON FOR STUDY: E07.89 OTHER SPECIFIED DISORDERS OF THYROID E07.89 OTHER SPECIFIED DISORDERS OF T HYROID COMPARISON: None. TECHNIQUE: Dynamic and static miller-scale images acquired of the thyroid gland. Selected additional c olor/power Doppler images recorded. All images stored to PACS. LIMITATIONS: None. FINDINGS: RIGHT LOBE: Normal size. Mildly heterogeneous echotexture. No cystic or solid masses. LEFT LOBE: Normal size. Mildly heterogeneous echotexture No cystic or solid masses. ISTHMUS: Normal size. Homogeneous echotexture. No cystic or solid masses. OTHER: No other significant finding. IMPRESSION: Normal thyroid size demonstrating mildly heterogeneous echotexture without focal nodule/ mass. TECHNICAL DOCUMENTATION: JOB ID: [id number] 2010 [employer]- All Rights Reserved Reading location - IP/workstation name: [email or web address]
== END ==
LOC: RAD 08:08
PROVIDERS: ATTEND Otolaryngology
DX: E07.89 Other specified disorders of thyroid (principal)
CPT/HCPCS: 76536

== ENCOUNTER → 2020-09-22 | Outpatient (CLI) | payer MEDICARE, OTHER ==
[2020-09-22 11:37] LABS: ABSOLUTE BASOPHILS # (AUTO) 0.1 10^3/uL (0.0-0.2); ABSOLUTE EOSINOPHILS # (AUTO) 0.3 10^3/uL (0.0-0.6); ABSOLUTE LYMPHOCYTES (AUTO) 2.4 10^3/uL (0.5-4.7); ABSOLUTE MONOCYTES (AUTO) 1.2 10^3/uL (0.1-1.4); BASOPHILS % (AUTO) 0.9 % (0-2); EOSINOPHILS % (AUTO) 2.9 % (0-6); HEMATOCRIT 44.5 % (37.9-51.0); HEMOGLOBIN 15.1 g/dL (13.5-17.0); LYMPHOCYTES % (AUTO) 26.5 % (13-45); MEAN CORPUSCULAR HEMOGLOBIN 30.1 pg (27.0-33.4); MEAN CORPUSCULAR HGB CONC 33.9 g/dL (32.0-36.0); MEAN CORPUSCULAR VOLUME 89 fl (80-97); MONOCYTES % (AUTO) 13.5 % (3-13); PLATELET COUNT 232 10^3/uL (150-450); RED BLOOD COUNT 5.02 10^6/uL (4.35-5.55); RED CELL DISTRIBUTION WIDTH 14.4 % (11.5-14.0); SEGMENTED NEUTROPHILS % (AUTO) 56.2 % (42-78); TOTAL CELLS COUNTED % (AUTO) 100 %; WHITE BLOOD COUNT 8.9 10^3/uL (4.0-10.5)
[2020-09-22 11:41] LABS: ALBUMIN 4.7 g/dL (3.5-5.0); ALKALINE PHOSPHATASE 110 U/L (38-126); ANION GAP 8 (5-19); ASPARTATE AMINO TRANSFERASE 32 U/L (17-59); BILIRUBIN,TOTAL 0.6 mg/dL (0.2-1.3); BLOOD UREA NITROGEN 13 mg/dL (7-20); CALCIUM 9.8 mg/dL (8.4-10.2); CARBON DIOXIDE 30 mmol/L (22-30); CHLORIDE 103 mmol/L (98-107); CHOLESTEROL 162.81 mg/dL (0-200); GLUCOSE 91 mg/dL (75-110); POTASSIUM 4.7 mmol/L (3.6-5.0); TOTAL PROTEIN 8.2 g/dL (6.3-8.2); TRIGLYCERIDES 140 mg/dL (<150)
[2020-09-22 11:52] LABS: DIRECT LDL 92 mg/dL (<100)
== END ==
LOC: OD 09:58
PROVIDERS: ATTEND Internal Medicine
DX: I25.10 Atherosclerotic heart disease of native coronary artery without angina pectoris (principal); I10 Essential (primary) hypertension; E03.9 Hypothyroidism, unspecified; E78.5 Hyperlipidemia, unspecified
CPT/HCPCS: 36415; 80053; 80061; 84443; 85025